=== PATIENT | female | born 1965 | race Caucasian/White ===

== ENCOUNTER → 2022-11-30 | Outpatient (CLI) | payer BC ==
[2022-12-02 09:41] LABS: Stool Occult Bld Immuno 1 Negative (NEGATIVE)
== END ==
LOC: LAB SHORT 10:50
PROVIDERS: Physician Assistant
DX: Z12.11 Encounter for screening for malignant neoplasm of colon (principal)
CPT/HCPCS: G0328

== ENCOUNTER 2023-02-20 09:31 | Emergency (ER) | payer BC ==
[~2023-02-20] VITALS: Ht 162.6 cm; Wt 123.4 kg
[2023-02-20 10:37] LABS: Source, Urine Clean Catch
[2023-02-20] MEDS ORDERED: PROZAC40 MG PO (10:42)
[2023-02-20 10:43] LABS: Appearance, Urine Clear (Clear); Bilirubin, Urine Neg (Neg); Blood, Urine 1+ (Neg); Color, Urine Yellow (P-Yellow); Glucose Qualitative, Urine Neg (Neg); Ketones, Urine 2+ (Neg); Leukocyte Esterase, Urine 2+ (Neg); Nitrite, Urine Neg (Neg); Protein, Urine 1+ (Neg); Urobilinogen, Urine NORM (Normal)
[2023-02-20 10:45] LABS: BASOPHILS ABSOLUTE AUTO 0.03 K/mm3 (0.00-0.23); BASOPHILS PERCENT AUTO 0 % (0-2); EOSINOPHILS PERCENT AUTO 1 % (0-6); Hematocrit 39.5 % (33.0-51.0); Hemoglobin 13.2 g/dL (11.5-16.0); IMMATURE GRAN ABSOLUTE AUTO 0.03 K/mm3 (0.00-0.10); IMMATURE GRAN PERCENT AUTO 0 % (0-1); LYMPHOCYTES ABSOLUTE AUTO 2.36 K/mm3 (0.84-5.20); LYMPHOCYTES PERCENT AUTO 29 % (21-46); MONOCYTES ABSOLUTE AUTO 0.51 K/mm3 (0.16-1.47); MONOCYTES PERCENT AUTO 6 % (4-13); Mean Corpuscular HGB 29.1 pg (26.0-34.0); Mean Corpuscular HGB Conc 33.4 g/dL (31.5-36.5); Mean Corpuscular Volume 87 fL (80-100); Mean Platelet Volume 10.2 fL (9.1-12.4); NEUTROPHILS ABSOLUTE AUTO 5.12 K/mm3 (1.96-9.15); NEUTROPHILS PERCENT AUTO 63 % (41-73); Platelet Count 225 K/mm3 (150-400); RDW Coefficient Variation 13.3 % (11.7-14.2); RDW Standard Deviation 42.2 fL (35.1-46.3); Red Blood Cell Count 4.53 M/mm3 (3.80-5.20); White Blood Cell Count 8.15 K/mm3 (4.00-11.30)
[2023-02-20 11:07] LABS: Red Blood Cells, Urine 0-2 /hpf (0-2); Squamous Epithelial Cells Mod /hpf (Few)
[2023-02-20 11:08] LABS: Bacteria Mod /hpf; Mucus Heavy (0-Heavy); Renal Epithelial Rare /hpf (0-Rare); Transitional Epithelial Cells Few /hpf (0-Rare)
[2023-02-20 11:12] LABS: Albumin, Blood 3.7 g/dL (3.4-5.0); Albumin/Globulin Ratio 1.3 (0.8-1.8); Bilirubin, Total 0.4 mg/dL (0.1-1.0); Bun/Creatinine Ratio 19.4 (12.0-20.0); Calcium, Blood 8.8 mg/dL (8.5-10.1); Creatinine, Blood 0.98 mg/dL (0.40-1.00); Globulin, Blood 2.8 g/dL (2.2-4.0); Potassium, Blood 4.3 mmol/L (3.5-5.5); Total Protein, Blood 6.5 g/dL (6.4-8.2)
[2023-02-20 11:45] VITALS: BP 139/81
[2023-02-20] MEDS ORDERED: CEPH500 PO (12:29)
== END 2023-02-20 12:53 | disposition home or self-care (01) ==
LOC: ER 09:31
PROVIDERS: Emergency Medicine
DX: N39.0 Urinary tract infection, site not specified (principal); Z88.8 Allergy status to other drugs, medicaments and biological substances; Z88.5 Allergy status to narcotic agent
CPT/HCPCS: 74177; 80053; 81001; 83690; 85025; 87086; 96374; 99284-25; A9270; J1885; Q9967

== ENCOUNTER 2023-04-06 14:17 | Day surgery (SDC) | payer BC ==
[~2023-04-06] VITALS: Ht 162.6 cm; Wt 123.4 kg
[~2023-04-06 14:17] MED LIST: CEPH500 PO; PROZAC40 MG PO
--- NOTE | 2023-04-06 14:40 | NUR ---
04/06/23 1440 Jaky Haney TETRACAINE TO LEFT EYE AT 1440 PLEDGET TO LEFT EYE AT 1441 BY [facility].[email or web address]
[2023-04-06 15:50] VITALS: BP 127/81
--- NOTE | 2023-04-06 16:09 | NUR ---
04/06/23 1609 Gerardo Lira IV REMOVED. WNL. CANNULA INTACT. MAGDY WELL
== END 2023-04-06 16:12 | disposition home or self-care (01) ==
LOC: ORSCSDS 14:17
PROVIDERS: Ophthalmology
PROC: 08DK3ZZ Extraction of Left Lens, Percutaneous Approach (ICD-10-PCS; principal; 2023-04-06 15:30)
DX: H25.13 Age-related nuclear cataract, bilateral (principal); F32.A Depression, unspecified; Z79.899 Other long term (current) drug therapy
CPT/HCPCS: J2250; J3010; J3301; J7040; V2632

== ENCOUNTER 2023-04-13 14:41 | Day surgery (SDC) | payer MEDICARE ==
[~2023-04-13] VITALS: Ht 162.6 cm; Wt 122.0 kg
--- NOTE | 2023-04-13 15:22 | NUR ---
04/13/23 1522 Pamela Esposito: 1503 ANDREE: [id number]
[2023-04-13 16:45] VITALS: BP 129/68
== END 2023-04-13 17:00 | disposition home or self-care (01) ==
LOC: ORSCSDS 14:41
PROVIDERS: Ophthalmology
PROC: 08RJ3JZ Replacement of Right Lens with Synthetic Substitute, Percutaneous Approach (ICD-10-PCS; principal; 2023-04-13 16:00)
DX: E11.36 Type 2 diabetes mellitus with diabetic cataract (principal); H25.11 Age-related nuclear cataract, right eye; Z96.1 Presence of intraocular lens; F41.9 Anxiety disorder, unspecified; Z68.42 Body mass index [BMI] 45.0-49.9, adult; Z79.899 Other long term (current) drug therapy
CPT/HCPCS: 82947; J2250; J3010; J3301; J7040; V2632

== ENCOUNTER → 2023-06-04 | Outpatient (CLI) | payer BC ==
[2023-06-16 10:42] LABS: HPV GENOTYPE 16 Not Detected; HPV GENOTYPE 18 Not Detected; HPV HIGH RISK Not Detected; HPV SOURCE Vaginal
== END | disposition home or self-care (01) ==
LOC: LAB 16:43 → LAB SHORT 16:43
PROVIDERS: Obstetrics & Gynecology
DX: Z01.419 Encounter for gynecological examination (general) (routine) without abnormal findings (principal)
CPT/HCPCS: 87624; G0123

== ENCOUNTER 2025-01-22 16:20 | Observation (INO) | payer BC ==
[~2025-01-22] VITALS: Ht 162.6 cm; Wt 134.4 kg
[2025-01-22] MEDS ORDERED: NS 1,000 ML IV SCH (16:55)
[2025-01-22 17:51] LABS: BASOPHILS ABSOLUTE AUTO 0.04 K/mm3 (0.00-0.23); BASOPHILS PERCENT AUTO 1 % (0-2); EOSINOPHILS ABSOLUTE AUTO 0.14 K/mm3 (0.00-0.68); EOSINOPHILS PERCENT AUTO 2 % (0-6); Hematocrit 39.6 % (33.0-51.0); Hemoglobin 12.9 g/dL (11.5-16.0); IMMATURE GRAN ABSOLUTE AUTO 0.02 K/mm3 (0.00-0.10); IMMATURE GRAN PERCENT AUTO 0 % (0-1); LYMPHOCYTES ABSOLUTE AUTO 1.59 K/mm3 (0.84-5.20); LYMPHOCYTES PERCENT AUTO 20 % (21-46); MONOCYTES ABSOLUTE AUTO 0.52 K/mm3 (0.16-1.47); MONOCYTES PERCENT AUTO 7 % (4-13); Mean Corpuscular HGB Conc 32.6 g/dL (31.5-36.5); Mean Corpuscular Volume 86 fL (80-100); NEUTROPHILS ABSOLUTE AUTO 5.62 K/mm3 (1.96-9.15); NEUTROPHILS PERCENT AUTO 71 % (41-73); NRBC ABSOLUTE 0.00 K/mm3 (0.00-0.02); NRBC Auto 0.0 /100 WBC (0.0-0.2); Platelet Count 207 K/mm3 (150-400); RDW Coefficient Variation 13.3 % (11.7-14.2); RDW Standard Deviation 41.1 fL (35.1-46.3)
[2025-01-22] MEDS ORDERED: Ketorolac Tromethamine 30mg Vial IV ONE (17:55)
[2025-01-22] MEDS ORDERED: Ondansetron HCl 2 MG / ML 2ML Vial IV ONE (18:10)
[2025-01-22 18:27] LABS: Source, Urine Straight Cath
[2025-01-22 18:31] LABS: Alanine Aminotransfer (ALT/SGP 23.0 U/L (12-78); Albumin, Blood 3.6 g/dL (3.4-5.0); Albumin/Globulin Ratio 1.0 (0.8-1.8); Anion Gap 9.0 mmol/L (3-11); Aspartate Aminotrans (AST/SGOT 25.0 U/L (12-37); Bilirubin, Total 0.9 mg/dL (0.1-1.0); Blood Urea Nitrogen 11.0 mg/dL (8-24); CO2, Blood 26.0 mmol/L (21-32); Calcium, Blood 8.9 mg/dL (8.5-10.1); Chloride, Blood 103.0 mmol/L (98-108); Creatinine, Blood 0.94 mg/dL (0.40-1.00); Globulin, Blood 3.5 g/dL (2.2-4.0); Glucose, Blood 115.0 mg/dL (70-99); Potassium, Blood 4.1 mmol/L (3.5-5.5); Sodium, Blood 134.0 mmol/L (136-145); Total Protein, Blood 7.1 g/dL (6.4-8.2)
[2025-01-22 18:40] LABS: Bilirubin, Urine Neg (Neg); Color, Urine Yellow (P-Yellow); Glucose Qualitative, Urine Neg (Neg); Ketones, Urine 4+ (Neg); Leukocyte Esterase, Urine Neg (Neg); Protein, Urine 2+ (Neg); Specific Gravity, Urine 1.015 (1.003-1.022); Urobilinogen, Urine NORM (Normal)
[2025-01-22 18:51] LABS: White Blood Cells, Urine 0-2 /hpf (0-5)
[2025-01-22] MEDS ORDERED: Piperacillin/Tazobactam Sod 3.375 GM in NS 100 ML IV ONE (19:45)
[2025-01-22] MEDS ORDERED: FentaNYL Citrate 50 MCG/ML 2 ML Injection IV PRN (23:25)
[2025-01-22] MEDS ORDERED: Ondansetron HCl 2 MG / ML 2ML Vial IV PRN (23:25)
[2025-01-22] MEDS ORDERED: NS 1,000 ML IV ONE (23:25)
[2025-01-23] VITALS (22 sets, daily range): BP systolic 110–138; BP diastolic 61–77
[2025-01-23] MEDS ORDERED: Ampicillin Sod/Sulbactam Sod 3 GM in NS 100 ML IV SCH
--- NOTE | 2025-01-23 00:45 | NUR ---
ARRIVAL TO UNIT PT ARRIVED TO UNIT VIA [facility] FROM ED. PT ABLE TO IND AMBULATE TO BED. A&O x4. VSS. AGREEABLE TO NPO STATUS. IV FLUIDS INFUSING UPON ARRIVAL, IV SITE REINFORED R/T POSITIONAL INFUSION DELAY. REPORTS ABD PAIN TOLERABLE, STATES PAIN BEGAN WEDNESDAY. ATTENDS IN USE R/T VOIDING URGENCY. ORIENTED TO ROOM, NO NEEDS STATED, CALL LIGHT IN REACH.
[2025-01-23] MEDS ORDERED: HYDROmorphone HCl/Pf 1MG SYR IV ONE (03:55)
[2025-01-23 04:25] LABS: BASOPHILS ABSOLUTE AUTO 0.02 K/mm3 (0.00-0.23); BASOPHILS PERCENT AUTO 0 % (0-2); EOSINOPHILS ABSOLUTE AUTO 0.10 K/mm3 (0.00-0.68); EOSINOPHILS PERCENT AUTO 1 % (0-6); Hematocrit 36.2 % (33.0-51.0); Hemoglobin 11.6 g/dL (11.5-16.0); IMMATURE GRAN ABSOLUTE AUTO 0.02 K/mm3 (0.00-0.10); IMMATURE GRAN PERCENT AUTO 0 % (0-1); LYMPHOCYTES ABSOLUTE AUTO 1.66 K/mm3 (0.84-5.20); LYMPHOCYTES PERCENT AUTO 23 % (21-46); MONOCYTES ABSOLUTE AUTO 0.65 K/mm3 (0.16-1.47); MONOCYTES PERCENT AUTO 9 % (4-13); Mean Corpuscular HGB Conc 32.0 g/dL (31.5-36.5); Mean Corpuscular Volume 87 fL (80-100); NEUTROPHILS ABSOLUTE AUTO 4.73 K/mm3 (1.96-9.15); NEUTROPHILS PERCENT AUTO 66 % (41-73); NRBC ABSOLUTE 0.00 K/mm3 (0.00-0.02); NRBC Auto 0.0 /100 WBC (0.0-0.2); Platelet Count 154 K/mm3 (150-400); RDW Coefficient Variation 13.4 % (11.7-14.2); RDW Standard Deviation 43.0 fL (35.1-46.3)
[2025-01-23 04:48] LABS: Alanine Aminotransfer (ALT/SGP 21.0 U/L (12-78); Albumin, Blood 3.0 g/dL (3.4-5.0); Albumin/Globulin Ratio 1.0 (0.8-1.8); Anion Gap 7.0 mmol/L (3-11); Aspartate Aminotrans (AST/SGOT 17.0 U/L (12-37); Bilirubin, Total 0.6 mg/dL (0.1-1.0); Blood Urea Nitrogen 12.0 mg/dL (8-24); CO2, Blood 28.0 mmol/L (21-32); Calcium, Blood 7.9 mg/dL (8.5-10.1); Chloride, Blood 107.0 mmol/L (98-108); Creatinine, Blood 1.03 mg/dL (0.40-1.00); Globulin, Blood 3.1 g/dL (2.2-4.0); Glucose, Blood 112.0 mg/dL (70-99); Potassium, Blood 3.9 mmol/L (3.5-5.5); Sodium, Blood 138.0 mmol/L (136-145); Total Protein, Blood 6.1 g/dL (6.4-8.2)
--- NOTE | 2025-01-23 06:27 | NUR ---
SHIFT SUMMARY S/P ACUTE APPENDICITIS. NO ACUTE CHANGES OVERNIGHT. VSS. NPO, DENIES N/V. REPORTS PAIN TOLERABLE c MEDICATION PER EMAR. IV FLUIDS/ABX INFUSING PER EMAR. SBA R/T LINES & WEAKNESS. ANTICIPATED SURGERY LATER TODAY. CALL LIGHT IN REACH, BED IN LOWEST POSITION, WILL REPORT TO DAY RN.
--- NOTE | 2025-01-23 07:43 | NUR ---
DAY SURGERY IN ROOM TO TAKE PATIENT TO PROCEDURE. PT AMBULATING WELL TO RESTROOM
[2025-01-23] MEDS ORDERED: Bupivacaine 0.5% HCl 5 MG/ML 30MLVIAL ONE (08:00)
[2025-01-23] MEDS ORDERED: Midazolam HCl 1MG / ML 2ML Vial ONE (08:26)
[2025-01-23] MEDS ORDERED: FentaNYL Citrate 50 MCG/ML 2 ML Injection ONE (08:35)
[2025-01-23] MEDS ORDERED: Sugammadex Sodium 200 MG/2ML SDV (100 MG/ML) ONE (08:45)
[2025-01-23] MEDS ORDERED: Labetalol HCL 5 MG/ML 4ML Injection (Single Dose) IV PRN (09:05)
[2025-01-23] MEDS ORDERED: FentaNYL Citrate 50 MCG/ML 2 ML Injection IV PRN ×2 (09:05)
[2025-01-23] MEDS ORDERED: Ondansetron HCl 2 MG / ML 2ML Vial IV PRN (09:05)
[2025-01-23] MEDS ORDERED: HYDROmorphone HCl/Pf 1MG SYR IV PRN ×2 (09:05)
[2025-01-23] MEDS ORDERED: Ketorolac Tromethamine 30mg Vial ONE (10:02)
[2025-01-23] MEDS ORDERED: Ondansetron HCl 2 MG / ML 2ML Vial ONE (10:33)
[2025-01-23] MEDS ORDERED: HYDROmorphone HCl/Pf 1MG SYR ONE (10:33)
--- NOTE | 2025-01-23 12:20 | NUR ---
ARRIVAL PT ARRIVED TO UNIT FROM PACU AT 1100. PT DENIES PAIN, BUT REPORTS SOME NAUSEA. DENIES APPETITE AT THIS TIME. RESTING IN BED COMFORTABLE. LAP SITES X4 CDI WITH WOUND GLUE.
--- NOTE | 2025-01-23 17:46 | NUR ---
SHIFT SUMMARY S/P LAP APPY PT HAS BEEN SLEEPING T/O MOST OF SHIFT. LAP SITES REMAIN CDI. TOLERATING PO WELL, SLIGHT NAUSEA INITIALLY ON ARRIVAL. RESOLVED AT THIS TIME. PT ON ROOM AIR. PLAN WILL BE FOR PATIENT TO DISCHARGE HOME TOMORROW.
[2025-01-24 03:51] VITALS: BP 113/62
--- NOTE | 2025-01-24 04:51 | NUR ---
SHIFT SUMMARY POD 1 LAP APPY. NO ACUTE CHANGES OVERNIGHT. VSS. TOLERATING ORALS, DENIES N/V. REPORTS PASSING FLATUS, NO BM. VOIDING. LAP SITE x4 c WOUND GLUE C/D/I. REPORTS PAIN TOLERABLE. SLEPT WELL. STAND/PIVOT TO BSC. ANTICIPATED D/C TODAY. CALL LIGHT IN REACH, BED IN LOWEST POSITION, WILL REPORT TO DAY RN.
[2025-01-24] MEDS ORDERED: OXYC5 PO (11:20)
[2025-01-24 13:12] VITALS: BP 139/68
--- NOTE | 2025-01-24 13:14 | NUR ---
DISCHARGING PT REPORTED RIDE SHOULD ARRIVE SHORTLY. REVIEWED DC INSTRUCTIONS W/PT; VERBALIZED UNDERSTANDING. DC'D IV, CATHETER INTACT. VSS. AWAITING RIDE.
--- NOTE | 2025-01-24 14:12 | NUR ---
DISCHARGED PT LEFT UNIT IN WC W/POSSESSIONS AND DC PAPERWORK IN HAND TO MEET RIDE AT PATIENT ENTRANCE.
== END 2025-01-24 14:06 | disposition home or self-care (01) ==
LOC: ER 16:20 → SURS 16:21
PROVIDERS: Student in an Organized Health Care Education/Training Program; Surgery; ADMIT Internal Medicine
PROC: 0DTJ4ZZ Resection of Appendix, Percutaneous Endoscopic Approach (ICD-10-PCS; principal; 2025-01-23 08:30)
DX: A41.9 Sepsis, unspecified organism (principal); K35.80 Unspecified acute appendicitis; D49.0 Neoplasm of unspecified behavior of digestive system; F32.A Depression, unspecified; G62.9 Polyneuropathy, unspecified; E88.819 Insulin resistance, unspecified; E66.9 Obesity, unspecified; Z68.43 Body mass index [BMI] 50.0-59.9, adult; Z79.899 Other long term (current) drug therapy; Z88.5 Allergy status to narcotic agent; Z88.8 Allergy status to other drugs, medicaments and biological substances
CPT/HCPCS: 36415; 51701; 74177; 80053; 81001; 83605; 83690; 83880; 85025; 87040; 88304; 93005; 93010; 96361; 96365-59; 96367; 96375; 96376; 99285-25; A9270; G0378; J0295; J1171; J1885; J2250; J2405; J2543; J2704; J3010; J7030; J7120; Q9967

== ENCOUNTER → 2025-06-16 | Outpatient (CLI) | payer BC ==
[~2025-06-16] MED LIST changes: +OXYC5 PO
[2025-06-17 10:21] LABS: Stool Occult Bld Immuno 1 Negative (NEGATIVE)
== END ==
LOC: LAB 19:53 → LAB SHORT 19:53
PROVIDERS: Physician Assistant
DX: Z12.11 Encounter for screening for malignant neoplasm of colon (principal)
CPT/HCPCS: G0328